=== PATIENT | male | born 1990 | race Hispanic/Latino ===

== ENCOUNTER 2024-04-18 08:11 | Emergency (ER) | payer OTHER ==
[~2024-04-18] VITALS: Ht 157.5 cm; Wt 93.0 kg
[2024-04-18 08:12] VITALS: BP 140/95; PULSE 59; RESP 16; TEMP 98.2
--- NOTE | 2024-04-18 08:37 | ERN ---
ED Note History of Present Illness Stated Complaint: RT SHOULDER PAIN Chief Complaint: Shoulder Injury/Pain Time Seen by MD: 08:28 Dictation: Patient is a 33-year-old male who is here for a right shoulder injury. Patient states his pain is at a 0 when resting and goes up to a 4 with movement. Denies any numbness, tingling, or weakness. Allergies: Coded Allergies: No Known Allergies (Unverified Allergy, Unknown, 04/18/24) Past Medical History Past Medical History: No Pertinent History Surgical History: None Review of System Dictation Constitutional-no chills, weight loss/gain, fever Eyes-no injury, pain, redness and discharge ENT-no injury, pain, swelling Cardiovascular no chest pain, palpitations, edema Respiratory no shortness of breath, cough, wheezing Abdomen/GI-no abdominal pain, diarrhea, constipation, vomiting, nausea Back no injury and pain Genitourinary no injury, bleeding and discharge Musculoskeletal/extremities, deformity. Injury to right shoulder Skin no rash, discoloration Neuro-no headache, weakness, numbness, tingling, seizures, tremors Psych-no suicidal ideation, homicidal ideation, hallucinations, depression, anxiety, memory loss Initial Vital Sign VS Vital Signs Date Time Temp Pulse Resp B/P (MAP) Pulse Ox O2 Delivery O2 Flow Rate FiO2 04/18/24 08:12 98.2 59 16 140/95 98 Room Air 0 Physical Exam Dictation General-patient is awake alert and oriented Head/neck-normocephalic, atraumatic Eyes-PERRL, EOMI, vision at baseline Neck-trachea midline, supple, no nuchal rigidity Cardiovascular-RRR, normal S1/S2, no MRG is, no JVD Respiratory-no distress, wheezing, rales, rhonchi Abdomen-no tenderness, guarding, soft, nondistended Skin warm, dry, normal turgor, no rash Musculoskeletal/extremities pulses equal, no cyanosis Neuro-COA X 4, GCS 15, strength 5/5, CN 2-12 intact. Pain on abduction and flexion past 90 degrees of right shoulder. Psych-normal behavior, mood and affect normal ED Course ED Course Orders Procedure Category Date Status Time Orphenadrine Citrate PHA 04/18/24 Verified (Norflex) 09:00 Ketorolac PHA 04/18/24 Verified Tromethamine 30mg/Ml 09:00 Vital Signs Date Time Temp Pulse Resp B/P (MAP) Pulse Ox O2 Delivery O2 Flow Rate FiO2 04/18/24 08:12 98.2 59 16 140/95 98 Room Air 0 Medical Decision Making MDM MDM INITIAL IMPRESSION Initial history and physical concerning for right shoulder injury Contributing medical problems: I have reviewed the triage nursing notes and vital signs. Initial plan: Physical xam DATA REVIEW I have reviewed additional NN, repeat VS, and monitoring where indicated. Heart rate, blood pressure, and O2 saturation are acceptable. ED COURSE Interventions: Conservative management Reassessment: Not indicated DISPOSITION Final diagnostic impression: Deltoid muscle injury I discussed my findings, clinical impression and treatment recommendations with the patient. My final plan for disposition was made based upon -mild risk of complications and potential morbidity of the patient's condition. -Discussion with the patient regarding management options. Patient will be discharged and advised to follow-up PCP. Procedure Procedure Dictation: Shoulder sling placed on right shoulder DX & DISP Disposition: Discharge Departure Impression: Primary Impression: Injury of right deltoid region Additional Impression: Shoulder pain, right Condition: Stable Scripts Naproxen (Naproxen) 375 Mg Tablet 1 TAB PO BID for pain for 30 Days, #60 TAB 0 Refills with food Prov: SD HINES MD 04/18/24 Methocarbamol (Robaxin) 750 Mg Tab 1 TAB PO BID for 30 Days, #60 TAB 0 Refills Prov: SD HINES MD 04/18/24 Additional Instructions: Rest your shoulder, apply ice packs to reduce swelling, take [id number] pain medication as needed, wear a sling as directed, avoid activities that cause pain, and follow-up with a physical therapist for gentle exercises to regain range of motion. FOLLOW-UP WITH PRIMARY CARE PROVIDER IN 1 TO 2 DAYS. TAKE MEDICATIONS DIRECTED HERE IN THE EMERGENCY ROOM. OKAY TO CONTINUE HOME MEDICATIONS UNLESS OTHERWISE DISCUSSED DURING YOUR VISIT IN THE EMERGENCY ROOM TODAY. RETURN TO YOUR NEAREST EMERGENCY ROOM IF SYMPTOMS WORSEN OR IF THERE IS NO IMPROVEMENT. CALL 911 IF YOU NEED IMMEDIATE ASSISTANCE. TAKE TYLENOL [id number] NEEDED AND IF NO CONTRAINDICATIONS ARE PRESENT. INCREASE ORAL HYDRATION. A WOUND CULTURE OR URINE CULTURE WAS ORDERED HERE IN THE EMERGENCY ROOM DEPARTMENT PLEASE FOLLOW-UP WITH PRIMARY CARE PROVIDER AND ADVISE THEM TO GET REPEAT PORTS FROM OUR FACILITY. IF YOU HAD ANY KYREE WRAP/SPLINTS THAT WERE APPLIED HERE, PLEASE DO NOT REMOVE THEM UNTIL YOU SEE YOUR PRIMARY CARE OR SPECIALTY. Time of Disposition: 09:00 I have reviewed I have reviewed the case I have examined patient SD HINES MD Apr 18, 2024 08:37
[2024-04-18] MEDS ORDERED: METH-662 PO (08:49)
[2024-04-18] MEDS ORDERED: NAPR-1192 PO (08:49)
[2024-04-18] MEDS: ketOROlac 30MG VIAL (30MG/ML) IM ONE (08:58)
[2024-04-18] MEDS: ORPHENADRINE 60MG/2ML IM ONE (08:58)
--- NOTE | 2024-04-18 09:59 | NUR ---
RIGHT SHOULDER IMMOBILIZER PLACED, PT TOLORATED WELL, NEUROVASCULAR STATUS INTACT
== END 2024-04-18 09:15 | disposition home or self-care (01) ==
LOC: EDH 08:11
DX: S49.91XA Unspecified injury of right shoulder and upper arm, initial encounter (principal); X58.XXXA Exposure to other specified factors, initial encounter; Y93.89 Activity, other specified; Y92.89 Other specified places as the place of occurrence of the external cause; Y99.8 Other external cause status
CPT/HCPCS: 99284; 29105; 96372 ×2; J1885; J2360